=== PATIENT | male | born 1995 | race African-American/Black ===

== ENCOUNTER 2018-11-04 12:16 | Emergency (ER) | payer BC ==
[~2018-11-04] VITALS: Ht 182.9 cm; Wt 133.8 kg
[~2018-11-04 12:16] MED LIST: ONDA4TAB10 SL
[2018-11-04 12:29] VITALS: BP 142/76
[2018-11-04] MEDS ORDERED: diazePAM 5 MG TABLET PO ONE (12:45)
[2018-11-04] MEDS ORDERED: KETOROLAC 60 MG/2 ML VIAL. IM ONE (12:45)
--- NOTE | 2018-11-04 13:16 | RAD ---
EXAM: AP, lateral and lumbosacral spot views with bilateral oblique views of the lumbar spine DATE: 11/04/2018 12:43 PM INDICATION: LOW BACK PAIN AFTER FALLING ON ICE 2 WEEKS AGO COMPARISON: No Prior FINDINGS: There are 5 nonrib-bearing lumbar-type vertebral bodies. Vertebral heights are preserved. Intervertebral disc heights are preserved. On the oblique views, no definite pars defects are seen. No significant facet degenerative change. No spondylolisthesis. Mild straightening of the normal lumbar lordosis. IMPRESSION: No evidence for acute fracture or subluxation Electronically signed by: Bolivar Lizarraga MD (11/04/2018 1:13 PM) [facility]
--- NOTE | 2018-11-04 13:20 | PHYS DOC ---
Past Medical History Past Medical History: No Pertinent History Past Surgical History: Other Additional Past Surgical Histo: RIGHT ROTATOR CUFF SX Alcohol Use: None Drug Use: None Adult General Chief Complaint Chief Complaint: BACK PAIN OR INJURY HPI HPI Patient is a 22 year old AA male who presents to the ER with complaints of low back pain after falling on ice 2 weeks ago. Pt states that this morning the pain was worse and it shoots into his right leg. Currently the pain is a 10/10 on the pain scale. Pt denies any numbness or weakness of his lower extremities bilat. He denies any saddle anesthesia or loss of bowel/bladder control. Pt denies any alleviating factors to the pain, states that the pain increases with movement and palpation. He denies any hematuria, dysuria, urinary frequency, or urgency. Review of Systems Review of Systems Constitutional: Denies fever or chills [] GI: Denies abdominal pain : Denies dysuria or hematuria [] Musculoskeletal: see HPI Integument: Denies rash or skin lesions [] Neurologic: Denies headache, focal weakness or sensory changes [] Current Medications Current Medications Current Medications Medications (Trade) Dose Ordered Sig/Nilda Start Time Stop Time Status Last Admin Dose Admin Diazepam (Valium) 5 mg 1X ONCE 11/04/18 12:45 11/04/18 12:46 DC 11/04/18 12:45 5 MG Ketorolac Tromethamine (Toradol Im) 30 mg 1X ONCE 11/04/18 12:45 11/04/18 12:46 DC 11/04/18 12:54 30 MG Allergies Allergies Allergies Coded Allergies Type Severity Reaction Last Updated Verified No Known Drug Allergies 05/27/16 No Physical Exam Physical Exam Constitutional: Well developed, well nourished, no acute distress, non-toxic appearance, obese. [] HENT: Normocephalic, atraumatic, bilateral external ears normal, nose normal. [] Eyes: conjunctiva normal, no discharge. [] Neck: Normal range of motion, no tenderness, no stridor. [] Lungs & Thorax: respirations even and regular, no retractions Skin: Warm, dry, no erythema, no rash. [] Back: lumbar bony TTP, paraspinal TTP of lumbar region bilat; increased back pain with stright leg lift of right leg, left leg straight leg lift negative Extremities: No cyanosis, no clubbing, ROM intact, no edema. [] Neurologic: Alert and oriented X 3, normal motor function, normal sensory function, no focal deficits noted. [] Psychologic: Affect normal, judgement normal, mood normal. [] Current Patient Data Vital Signs Vital Signs Date Time Temp Pulse Resp B/P (MAP) Pulse Ox O2 Delivery O2 Flow Rate FiO2 11/04/18 12:29 102.1 92 16 142/76 (98) 98 Room Air 102.1 EKG EKG [] Radiology/Procedures Radiology/Procedures PROCEDURE: LUMBAR SPINE MIN 4V EXAM: AP, lateral and lumbosacral spot views with bilateral oblique views of the lumbar spine DATE: 11/04/2018 12:43 PM INDICATION: LOW BACK PAIN AFTER FALLING ON ICE 2 WEEKS AGO COMPARISON: No Prior FINDINGS: There are 5 nonrib-bearing lumbar-type vertebral bodies. Vertebral heights are preserved. Intervertebral disc heights are preserved. On the oblique views, no definite pars defects are seen. No significant facet degenerative change. No spondylolisthesis. Mild straightening of the normal lumbar lordosis. IMPRESSION: No evidence for acute fracture or subluxation[] Course & Med Decision Making Course & Med Decision Making Pertinent Labs and Imaging studies reviewed. (See chart for details) Xray of lumbar spine was negative for any acute findings. Pt was given 5 mg po Valium and 30 mg IM toradol in the ER. Reports no decrease in pain prior to dc. Prescription was written for naproxen and flexeril. Follow up with PCP if sx persist. Return to ER if sx worsen. Activity as tolerated. Patient verbalized an understanding of home care, medications, follow-up, and return to ED instructions and was in agreement with the plan of care. [] Dragon Disclaimer Dragon Disclaimer This electronic medical record was generated, in whole or in part, using a voice recognition dictation system. Departure Departure Impression: Primary Impression: Low back pain radiating to right leg Additional Impression: Fall from slipping on ice Disposition: 01 HOME, SELF-CARE Condition: STABLE Referrals: RADHA HAYDEN MD (PCP) Patient Instructions: Back Pain, Adult, [id number] Additional Instructions: Fill the Prescriptions and use as directed. May apply ice or heat as needed for comfort, activity as tolerated. Follow-up with your primary care doctor if symptoms persist. Return to the ER symptoms worsen. Scripts Naproxen (NAPROXEN) 500 Mg Tablet 500 MG PO BID PRN for PAIN for 10 Days, #20 TAB 0 Refills Prov: ALESHIA BARKER APRN 11/04/18 Cyclobenzaprine Hcl (CYCLOBENZAPRINE HCL) 10 Mg Tablet 10 MG PO TID PRN for PAIN for 10 Days, #30 TAB 0 Refills Prov: ALESHIA BARKER APRN 11/04/18 Problem Qualifiers Additional Impression: Fall from slipping on ice Encounter type: initial encounter Qualified Codes: W00.9XXA - Unspecified fall due to ice and snow, initial encounter ALESHIA BARKER APRN Nov 04, 2018 13:20
[2018-11-04] MEDS ORDERED: NAPR-514 PO (13:39)
[2018-11-04] MEDS ORDERED: CYCL10TA2 PO (13:39)
== END 2018-11-04 13:48 | disposition home or self-care (01) ==
LOC: ER 12:16
DX: M54.5 Low back pain (principal); M79.604 Pain in right leg; W00.0XXA Fall on same level due to ice and snow, initial encounter; Y93.89 Activity, other specified; Y92.89 Other specified places as the place of occurrence of the external cause; Y99.8 Other external cause status
CPT/HCPCS: 72110; 96372; 99283; J1885

== ENCOUNTER 2020-09-08 19:34 | Emergency (ER) | payer BC, OTHER ==
[~2020-09-08] VITALS: Ht 177.8 cm; Wt 82.0 kg
[~2020-09-08 19:34] MED LIST changes: +CYCL10TA2 PO; +NAPR-514 PO
[2020-09-08 19:45] VITALS: BP 185/124
--- NOTE | 2020-09-08 20:54 | PHYS DOC ---
Past Medical History Past Medical History: No Pertinent History Past Surgical History: Tonsillectomy, Other Additional Past Surgical Histo: RIGHT ROTATOR CUFF SX Smoking Status: Never Smoker Alcohol Use: Rarely Drug Use: None General Adult EDM: Chief Complaint: LOWEREXTREMITY INJURY HPI: HPI: Patient is a 24 year old male who presents with patient states last night he tripped down some stairs injuring his left ankle. He has left ankle and foot 2+ swelling. He has left lateral ankle bruising. Patient states he went to urgent care [facility] and they did an x-ray but they had to send off to be read. Patient states that he took tramadol but is not helping the pain. Patient is rating his pain 9 out of 10 states is throbbing. Patient has a history of tonsillectomy and right rotator cuff surgery. Review of Systems: Review of Systems: Constitutional: Denies fever or chills. [] Eyes: Denies change in visual acuity. [] HENT: Denies nasal congestion or sore throat. [] Respiratory: Denies cough or shortness of breath. [] Cardiovascular: Denies chest pain. + Left ankle 2+ edema. [] GI: Denies abdominal pain, nausea, vomiting, bloody stools or diarrhea. [] : Denies dysuria. [] Musculoskeletal: Denies back pain. + Left ankle joint pain. [] Integument: Denies rash. +Left lateral ankle bruising [] Neurologic: Denies headache, focal weakness or sensory changes. [] Endocrine: Denies polyuria or polydipsia. [] Lymphatic: Denies swollen glands. [] Psychiatric: Denies depression or anxiety. [] Heart Score: Risk Factors: Risk Factors: DM, Current or recent (<one month) smoker, HTN, HLP, family history of CAD, obesity. Risk Scores: Score 0 - 3: 2.5% MACE over next 6 weeks - Discharge Home Score 4 - 6: 20.3% MACE over next 6 weeks - Admit for Clinical Observation Score 7 - 10: 72.7% MACE over next 6 weeks - Early Invasive Strategies Allergies: Allergies: Allergies Coded Allergies Type Severity Reaction Last Updated Verified No Known Drug Allergies 05/27/16 No Physical Exam: PE: Constitutional: Well developed, well nourished, no acute distress, non-toxic appearance. [] HENT: Normocephalic, atraumatic, bilateral external ears normal, oropharynx moist, no oral exudates, nose normal. [] Eyes: PERRLA, EOMI, conjunctiva normal, no discharge. [] Neck: Normal range of motion, no tenderness, supple, no stridor. [] Cardiovascular:Heart rate regular rhythm, no murmur [] Lungs & Thorax: Bilateral breath sounds clear to auscultation [] Abdomen: Bowel sounds normal, soft, no tenderness, no masses, no pulsatile masses. [] Skin: Warm, dry, no erythema, no rash. Left lateral ankle bruising [] Back: No tenderness, no CVA tenderness. [] Extremities: Left lateral ankle tenderness, no cyanosis, no clubbing, left ankle ROM not intact due to pain and swelling, 2+ edema. [] Neurologic: Alert and oriented X 3, normal motor function, normal sensory function, no focal deficits noted. [] Psychologic: Affect normal, judgement normal, mood normal. [] Current Patient Data: Vital Signs: Vital Signs Date Time Temp Pulse Resp B/P (MAP) Pulse Ox O2 Delivery O2 Flow Rate FiO2 09/08/20 19:45 98.3 72 20 185/124 (144) 99 Room Air 98.3 EKG: EKG: [] Radiology/Procedures: Radiology/Procedures: [] Impression: [facility] [address] [place], [place] [id number] IMAGING REPORT Signed PATIENT: TOSIN GONZALEZ ACCOUNT: [id number] : 1995 LOCATION: ER AGE: 24 SEX: M EXAM STATUS: REG ER ORD. PHYSICIAN: SADIA NICHOLSON APRN REASON: pain, fall PROCEDURE: ANKLE LEFT 3V Two View Left Tibia Fibula: Clinical History: Status post fall. Technique: AP and lateral views were obtained. Comparison: None. Findings: The visualized osseous structures appear normal. Impression: No acute findings. End impression 3 views left ankle: AP lateral oblique views The visualized osseous structures appear normal. The tibiotalar relationship is normal. IMPRESSION: Negative examination. Electronically signed by: Janessa Franklin III, MD (09/08/2020 9:13 PM) [facility] DICTATED and SIGNED BY: JANESSA FRANKLIN III, MD DATE: 09/08/20 [id number] 0 Course & Med Decision Making: Course & Med Decision Making Pertinent Labs and Imaging studies reviewed. (See chart for details) See HPI. Pedal pulses strong and present. Skin pink warm and dry. Ambulatory with a steady gait limping on left foot. Range of motion is not intact to the left ankle due to swelling and pain. Patient can wiggle his toes but again he states that it elicits pain. There is tenderness to the lateral left ankle. Refill less than 2 seconds. X-ray shows no acute findings. Patient will be placed in a stirrup in a posterior splint. He can follow-up with Dr. Hernandez as soon as possible. Splint assessment: Neurovascularly intact post splint replacement with good fit. Patient's extremity symptoms have stabilized well they have been evaluated in the department and are appropriate for outpatient follow-up. No evidence of compartment syndrome, neurologic injury, vascular injury, open joint, open fracture, tendon laceration, or foreign body. [] Dragon Disclaimer: Dragon Disclaimer: This electronic medical record was generated, in whole or in part, using a voice recognition dictation system. Departure Departure Impression: Primary Impression: Fall Qualified Codes: W19.XXXA - Unspecified fall, initial encounter Additional Impression: Ankle pain, left Qualified Codes: M25.572 - Pain in left ankle and joints of left foot Disposition: 01 DC HOME SELF CARE/HOMELESS Condition: STABLE Referrals: RADHA HAYDEN MD (PCP) JANESSA HERNANDEZ MD Patient Instructions: Ankle Sprain, Contusion, Fall Prevention and Home Safety Additional Instructions: Follow-up with the orthopedic I have referred you to ear primary care provider. Keep leg elevated and iced To help with swelling and pain. Take tramadol or ibuprofen or Tylenol. Scripts Hydrocodone Bit/Acetaminophen (HYDROCODONE-APAP 5-325 ) 1 Tab Tablet 1 TAB PO PRN Q6HRS PRN for PAIN, #8 TAB 0 Refills Prov: SADIA NICHOLSON APRN 09/08/20 SADIA NICHOLSON APRN Sep 08, 2020 20:54
--- NOTE | 2020-09-08 21:17 | RAD ---
Two View Left Tibia Fibula: Clinical History: Status post fall. Technique: AP and lateral views were obtained. Comparison: None. Findings: The visualized osseous structures appear normal. Impression: No acute findings. End impression 3 views left ankle: AP lateral oblique views The visualized osseous structures appear normal. The tibiotalar relationship is normal. IMPRESSION: Negative examination. Electronically signed by: Mark Mitchell III, MD (09/08/2020 9:13 PM) [facility]
[2020-09-08] MEDS ORDERED: HYDR-2761 PO (21:25)
== END 2020-09-08 22:00 | disposition home or self-care (01) ==
LOC: ER 19:34
DX: S90.02XA Contusion of left ankle, initial encounter (principal); R60.0 Localized edema; Z90.89 Acquired absence of other organs; Z98.890 Other specified postprocedural states; W18.39XA Other fall on same level, initial encounter; Y93.89 Activity, other specified; Y92.89 Other specified places as the place of occurrence of the external cause; Y99.8 Other external cause status
CPT/HCPCS: 29515; 73590; 73610; 99284

== ENCOUNTER 2021-01-31 07:16 | Emergency (ER) | payer OTHER ==
[~2021-01-31] VITALS: Ht 182.9 cm; Wt 139.0 kg
[~2021-01-31 07:16] MED LIST changes: +HYDR-2761 PO
--- NOTE | 2021-01-31 07:37 | ED.ADGEN ---
Past Medical History Past Medical History: No Pertinent History Past Surgical History: Tonsillectomy, Other Additional Past Surgical Histo: RIGHT ROTATOR CUFF SX Smoking Status: Never Smoker Alcohol Use: Rarely Drug Use: None General Adult EDM: Chief Complaint: NAUSEA/VOMITING/DIARRHEA HPI: HPI: Patient is a 25-year-old male who arrives ambulatory to the emergency department complaining of nausea and vomiting since Friday. Patient reports he is been experiencing multiple episodes of nausea with vomiting since Friday of this week. Patient states he also has associated epigastric abdominal pain which is more prominent whenever he does vomit. Patient reports he was feeling a little better yesterday and tried to take in food however he did not tolerate that well and reports waking today with the same symptoms as Friday. Patient states his pain is a sharp nonradiating pain in his epigastric region. He denies any fevers. He further denies any sick contacts. Additionally he denies any chest pain or history of any abdominal illnesses of a chronic nature. He is awake, alert and uncomfortable appearing. Review of Systems: Review of Systems: Constitutional: Denies fever or chills. [] Eyes: Denies change in visual acuity. [] HENT: Denies nasal congestion or sore throat. [] Respiratory: Denies cough or shortness of breath. [] Cardiovascular: Denies chest pain or edema. [] GI: Reports nausea, vomiting and abdominal pain. Denies bloody stools or diarrhea. [] : Denies dysuria. [] Musculoskeletal: Denies back pain or joint pain. [] Integument: Denies rash. [] Neurologic: Denies headache, focal weakness or sensory changes. [] Endocrine: Denies polyuria or polydipsia. [] Lymphatic: Denies swollen glands. [] Psychiatric: Denies depression or anxiety. [] Current Medications: Current Medications Medications (Trade) Dose Ordered Sig/Nilda Start Time Stop Time Status Last Admin Dose Admin Morphine Sulfate (Morphine Sulfate) 4 mg PRN Q15MIN PRN 01/31/21 07:45 02/01/21 07:44 01/31/21 08:11 4 MG Ondansetron HCl (Zofran) 4 mg 1X ONCE 01/31/21 07:45 01/31/21 07:46 DC 01/31/21 07:45 4 MG Sodium Chloride 1,000 ml @ 1,000 mls/hr Q1H 01/31/21 07:45 01/31/21 08:44 01/31/21 07:45 1,000 MLS/HR Allergies: Allergies: Allergies Coded Allergies Type Severity Reaction Last Updated Verified No Known Drug Allergies 05/27/16 No Physical Exam: PE: Constitutional: Well developed, well nourished, no acute distress, non-toxic appearance. [] HENT: Normocephalic, atraumatic, bilateral external ears normal, oropharynx moist, no oral exudates, nose normal. [] Eyes: PERRLA, EOMI, conjunctiva normal, no discharge. [] Neck: Normal range of motion, no tenderness, supple, no stridor. [] Cardiovascular:Heart rate regular rhythm, no murmur [] Lungs & Thorax: Bilateral breath sounds clear to auscultation [] Abdomen: Tenderness to palpation in the epigastric region. Bowel sounds normal, soft, no masses, no pulsatile masses. [] Skin: Warm, dry, no erythema, no rash. [] Back: No tenderness, no CVA tenderness. [] Extremities: No tenderness, no cyanosis, no clubbing, ROM intact, no edema. [] Neurologic: Alert and oriented X 3, normal motor function, normal sensory function, no focal deficits noted. [] Psychologic: Affect normal, judgement normal, mood normal. [] Current Patient Data: Labs: Laboratory Tests Test 01/31/21 07:28 01/31/21 07:40 Urine Collection Type Unknown Urine Color Yellow Urine Clarity Clear Urine pH 6.0 (<5.0-8.0) Urine Specific [place] >=1.030 (1.000-1.030) Urine Protein Negative mg/dL (NEG-TRACE) Urine Glucose (UA) Negative mg/dL (NEG) Urine Ketones (Stick) Trace mg/dL (NEG) Urine Blood Small (NEG) Urine Nitrite Negative (NEG) Urine Bilirubin Negative (NEG) Urine Urobilinogen Dipstick 0.2 mg/dL (0.2 mg/dL) Urine Leukocyte Esterase Negative (NEG) Urine RBC 6-10 /HPF (0-2) Urine WBC Occ /HPF (0-4) Urine Squamous Epithelial Cells Occ /LPF Urine Bacteria 0 /HPF (0-FEW) Urine Mucus Mod /LPF White Blood Count 6.5 x10^3/uL (4.0-11.0) Red Blood Count 4.61 x10^6/uL (4.30-5.70) Hemoglobin 13.8 g/dL (13.0-17.5) Hematocrit 40.3 % (39.0-53.0) Mean Corpuscular Volume 87 fL (79-100) Mean Corpuscular Hemoglobin 30 pg (25-35) Mean Corpuscular Hemoglobin Concent 34 g/dL (31-37) Red Cell Distribution Width 13.7 % (11.5-14.5) Platelet Count 338 x10^3/uL (140-400) Neutrophils (%) (Auto) 64 % (31-73) Lymphocytes (%) (Auto) 23 % (24-48) L Monocytes (%) (Auto) 11 % (0-9) H Eosinophils (%) (Auto) 2 % (0-3) Basophils (%) (Auto) 0 % (0-3) Neutrophils # (Auto) 4.2 x10^3/uL (1.8-7.7) Lymphocytes # (Auto) 1.5 x10^3/uL (1.0-4.8) Monocytes # (Auto) 0.7 x10^3/uL (0.0-1.1) Eosinophils # (Auto) 0.1 x10^3/uL (0.0-0.7) Basophils # (Auto) 0.0 x10^3/uL (0.0-0.2) Sodium Level 142 mmol/L (136-145) Potassium Level 3.5 mmol/L (3.5-5.1) Chloride Level 105 mmol/L (98-107) Carbon Dioxide Level 27 mmol/L (21-32) Anion Gap 10 (6-14) Blood Urea Nitrogen 15 mg/dL (8-26) Creatinine 1.1 mg/dL (0.7-1.3) Estimated GFR (Cockcroft-Gault) 97.2 BUN/Creatinine Ratio 14 (6-20) Glucose Level 129 mg/dL (70-99) H Calcium Level 9.5 mg/dL (8.5-10.1) Total Bilirubin 0.8 mg/dL (0.2-1.0) Aspartate Amino Transferase (AST) 18 U/L (15-37) Alanine Aminotransferase (ALT) 44 U/L (16-63) Alkaline Phosphatase 62 U/L (46-116) Total Protein 7.8 g/dL (6.4-8.2) Albumin 4.4 g/dL (3.4-5.0) Albumin/Globulin Ratio 1.3 (1.0-1.7) Lipase 74 U/L (73-393) Laboratory Tests 01/31/21 07:40 Laboratory Tests 01/31/21 07:40 Vital Signs: Vital Signs Date Time Temp Pulse Resp B/P (MAP) Pulse Ox O2 Delivery O2 Flow Rate FiO2 01/31/21 08:11 23 99 Room Air 01/31/21 07:33 98.1 57 153/84 (107) 98.1 EKG: EKG: [] Heart Score: C/O Chest Pain: No Risk Factors: Risk Factors: DM, Current or recent (<one month) smoker, HTN, HLP, family history of CAD, obesity. Risk Scores: Score 0 - 3: 2.5% MACE over next 6 weeks - Discharge Home Score 4 - 6: 20.3% MACE over next 6 weeks - Admit for Clinical Observation Score 7 - 10: 72.7% MACE over next 6 weeks - Early Invasive Strategies Radiology/Procedures: Radiology/Procedures: [] Course & Med Decision Making: Course & Med Decision Making Pertinent Labs and Imaging studies reviewed. (See chart for details) [] Dragon Disclaimer: Dragon Disclaimer: This electronic medical record was generated, in whole or in part, using a voice recognition dictation system. Departure Departure Impression: Primary Impression: Abdominal pain Additional Impression: Nausea and vomiting Disposition: 01 HOME / SELF CARE / HOMELESS Condition: IMPROVED Referrals: RADHA HAYDEN MD (PCP) Patient Instructions: Abdominal Migraine, Nausea and Vomiting Additional Instructions: The patient remains awake, alert and in no acute distress. I advised the patient to take a liquid diet over the next 24 hours. He is then been instructed to advance his diet as he tolerates. Should he develop any worsening pain or fevers, I advised him to return to the emergency department. The patient understands and has agreed to do so. He is nontoxic-appearing and resting comfortably at this time. He is stable for discharge. Scripts Dicyclomine Hcl (DICYCLOMINE HCL) 10 Mg Capsule 10 MG PO QID for 2 Days, #8 CAP Prov: PADMA JUAN DO 01/31/21 Ondansetron Hcl (ZOFRAN) 4 Mg Tablet 1 TAB PO PRN Q6-8HRS for 2 Days, #5 TAB Prov: PADMA JUAN DO 01/31/21 Problem Qualifiers PADMA JUAN DO Jan 31, 2021 07:36
[2021-01-31] MEDS ORDERED: ONDANSETRON PF 4 MG/2 ML VIAL. IVP ONE (07:45)
[2021-01-31] MEDS ORDERED: IV NORMAL SALINE 1000ML BAG 1,000 ML IV SCH (07:45)
[2021-01-31] MEDS: MORPHINE SULFATE 4 MG/ML VIAL. IV/SQ PRN ×2 (07:46→08:11)
[2021-01-31 07:47] LABS: BASO % 0 % (0-3); EOS # 0.1 x10^3/uL (0.0-0.7); EOS % 2 % (0-3); HEMATOCRIT 40.3 % (39.0-53.0); HEMOGLOBIN 13.8 g/dL (13.0-17.5); LYMPH # 1.5 x10^3/uL (1.0-4.8); LYMPH % 23 % (24-48); MEAN CORPUSCULAR HEMOGLOBIN 30 pg (25-35); MEAN CORPUSCULAR HGB CONC 34 g/dL (31-37); MEAN CORPUSCULAR VOLUME 87 fL (79-100); MONO # 0.7 x10^3/uL (0.0-1.1); MONO % 11 % (0-9); NEUT # 4.2 x10^3/uL (1.8-7.7); NEUT % 64 % (31-73); PLATELET COUNT 338 x10^3/uL (140-400); RED BLOOD COUNT 4.61 x10^6/uL (4.30-5.70); RED CELL DISTRIBUTION WIDTH 13.7 % (11.5-14.5); WHITE BLOOD COUNT 6.5 x10^3/uL (4.0-11.0)
[2021-01-31 07:56] LABS: CALCIUM 9.5 mg/dL (8.5-10.1); CREATININE 1.1 mg/dL (0.7-1.3); GFR 97.2; POTASSIUM 3.5 mmol/L (3.5-5.1)
[2021-01-31 08:03] LABS: ALBUMIN 4.4 g/dL (3.4-5.0); ALBUMIN/GLOBULIN RATIO 1.3 (1.0-1.7); TOTAL BILIRUBIN 0.8 mg/dL (0.2-1.0); TOTAL PROTEIN 7.8 g/dL (6.4-8.2)
[2021-01-31 08:06] LABS: BILIRUBIN,URINE NEGATIVE (NEG); CLARITY,URINE CLEAR; COLOR,URINE YELLOW; NITRITE,URINE NEGATIVE (NEG); PROTEIN,URINE NEGATIVE (NEG-TRACE); UROBILINOGEN,URINE 0.2 mg/dL (0.2 mg/dL)
[2021-01-31 08:20] LABS: BACTERIA,URINE 0 /HPF (0-FEW); WBC,URINE OCC /HPF (0-4)
[2021-01-31 08:25] VITALS: BP 153/78
[2021-01-31] MEDS ORDERED: DICY10CA3 PO (08:34)
[2021-01-31] MEDS ORDERED: ONDA4TAB7 PO (08:34)
== END 2021-01-31 08:50 | disposition home or self-care (01) ==
LOC: ER 07:16
DX: R10.13 Epigastric pain (principal); R11.2 Nausea with vomiting, unspecified
CPT/HCPCS: 36415; 80053; 81001; 83690; 85025; 96361; 96374; 96375; 99284; J2270; J2405; J7030